=== PATIENT | male | born 1985 | race American Indian/Alaskan Native ===

== ENCOUNTER 2022-04-15 07:37 | Emergency (ER) | payer OTHER ==
--- NOTE | 2022-04-15 08:13 | XRay Report ---
RIGHT HAND 3 VIEWS INDICATION: laceration. COMPARISON: None. IMPRESSION: No soft tissue laceration is clearly seen on x-ray. No evidence for soft tissue gas or r adiopaque foreign body. No osseous abnormality or joint pathology is detected. Signer Name: Tino Mckeon Jr, MD Signed: 04/15/2022 8:09 AM Workstation Name: [id number]
[2022-04-15] MEDS ORDERED: TETANUS,DIPH,PERTUSS(ACELL) VACCINE 0.5 ML SYRINGE IM ONE (08:14)
--- NOTE | 2022-04-15 09:37 | Emergency Department Report ---
- General Chief Complaint: Wound/Laceration Stated Complaint: CUT FINGER Time Seen by Provider: 04/15/22 09:29 Source: patient Mode of arrival: Ambulatory Limitations: No Limitations - History of Present Illness Initial Comments: 36-year-old black male with a past medical history of hypertension presents to the emergency department for evaluation of right and hand injury. He states that while at work this morning, his hand was slammed down under machine. He presents with right thumb laceration as well as pain and swelling to the right thumb and hand. -: Sudden, This morning Extremity Location: Right: Hand Place: work Patient Tetanus UTD: No Context: accidental Associated Symptoms: pain. denies: loss of feeling/numbness, suspect foreign body present, unable to move injured part, weakness followed by dizziness, nausea/vomiting, fever - Related Data Previous Rx's Medication Instructions Recorded Last Taken Type Mupirocin [Bactroban 2%] 1 applic TP BID #1 tube 04/15/22 Unknown Rx cephALEXin [Keflex] 500 mg PO BID #14 cap 04/15/22 Unknown Rx Allergies Allergy/AdvReac Type Severity Reaction Status Date / Time No Known Allergies Allergy Unverified 04/15/22 07:45 ED Review of Systems ROS: Stated complaint: CUT FINGER Other details as noted in HPI Comment: All other systems reviewed and negative Constitutional: denies: fever Respiratory: denies: shortness of breath, SOB with exertion, SOB at rest, stridor, wheezing Cardiovascular: denies: chest pain Gastrointestinal: denies: abdominal pain, nausea, vomiting Musculoskeletal: denies: back pain Neurological: denies: headache Hematological/Lymphatic: denies: easy bleeding ED Past Medical Hx - Medications Home Medications: Home Medications Medication Instructions Recorded Confirmed Last Taken Type Mupirocin [Bactroban 2%] 1 applic TP BID #1 tube 04/15/22 Unknown Rx cephALEXin [Keflex] 500 mg PO BID #14 cap 04/15/22 Unknown Rx ED Physical Exam - General Limitations: No Limitations General appearance: alert, in no apparent distress - Head Head exam: Present: atraumatic, normocephalic - Eye Eye exam: Present: normal appearance. Absent: conjunctival injection - Neck Neck exam: Present: normal inspection. Absent: tenderness - Respiratory Respiratory exam: Absent: respiratory distress - Cardiovascular Cardiovascular Exam: Present: regular rate - GI/Abdominal GI/Abdominal exam: Absent: distended - Expanded Upper Extremity Exam Right Hand Wrist exam: Present: tenderness, swelling, laceration Hand L/R Front: 1 - Positive: abrasion. Negative: normal inspection, laceration Hand L/R Back: 1 - Laceration Neuro motor exam: Present: thumb opposition intact, thumb IP flexion intact, thumb adduction intact, fingers 2-5 abduction intact Neurosensory exam: Present: radial nerve intact Vascular: Present: normal capillary refill, radial pulse. Absent: vascular compromise, Pallo, pulse deficit radial art - Back Exam Back exam: Present: normal inspection - Neurological Exam Neurological exam: Present: alert, oriented X3 - Psychiatric Psychiatric exam: Present: normal affect, normal mood - Skin Skin exam: Present: warm, dry, normal color ED Course Vital Signs 04/15/22 04/15/22 07:44 09:54 Temperature 98.4 F Pulse Rate 94 H 90 Respiratory 16 16 Rate Blood Pressure 189/123 180/120 [Right] O2 Sat by Pulse 96 97 Oximetry - Laceration /Wound Repair Right Finger Wound Location: upper extremity (Right posterior thumb) Wound's Depth, Shape: superficial Wound Explored: clean Irrigated w/ Saline (ccs): 60 Betadine Prep?: No Anesthesia: 1% Lidocaine Volume Anesthetic (ccs): 4 Wound Repaired With: sutures Suture Size/Type: 4:0 (Vicryl) Number of Sutures: 5 Layer Closure?: No Sterile Dressing Applied?: Yes Progress: Patient tolerated well ED Medical Decision Making - Radiology Data Radiology results: report reviewed, image reviewed Right hand x-ray: IMPRESSION: No soft tissue laceration is clearly seen on x-ray. No evidence for soft tissue gas or radiopaque foreign body. No osseous abnormality or joint pathology is detected. - Medical Decision Making 36-year-old black male with a past medical history of hypertension presents to the emergency department for evaluation of right and hand injury. He states that while at work this morning, his hand was slammed down under machine. He presents with right thumb laceration as well as pain and swelling to the right thumb and hand. Right hand x-ray without any acute abnormalities noted. Right thumb laceration repaired per my procedure note. Tdap updated. Right hand abrasion cleaned. Patient advised to leave the sutures in until they resolve over the next 2 to 3 weeks. He is advised to take medication as prescribed and follow-up with a hand surgeon if worsening symptoms. He verbalizes understanding of and agreement with plan of care. Critical care attestation.: If time is entered above; I have spent that time in minutes in the direct care of this critically ill patient, excluding procedure time. ED Disposition Clinical Impression: Laceration of right thumb Qualifiers: Encounter type: initial encounter Damage to nail status: without damage Foreign body presence: without foreign body Qualified Code(s): S61.011A - Laceration without foreign body of right thumb without damage to nail, initial encounter Abrasion of right hand Qualifiers: Encounter type: initial encounter Qualified Code(s): S60.511A - Abrasion of right hand, initial encounter Disposition: 01 HOME / SELF CARE / HOMELESS Is pt being admited?: No Does the pt Need Aspirin: No Condition: Stable Instructions: Laceration Care, Adult, [id number], Abrasion, [id number], Sutured Wound Care, [id number] Additional Instructions: Take medications as prescribed. Leave stitches in until they dissolve. If you develop swelling to area, drainage, yellow streaks, or fever, return to the emergency department immediately for evaluation for infection. Follow-up with hand surgeon if worsening symptoms. Return to the emergency department as needed. Prescriptions: Mupirocin [Bactroban 2%] 1 applic TP BID #1 tube cephALEXin [Keflex] 500 mg PO BID #14 cap Referrals: Sugar Miranda [Other] - 3-5 Days Forms: Work/School Release Form(ED) Time of Disposition: 09:42
[2022-04-15 09:55] VITALS: BP 180/120
== END 2022-04-15 10:20 | disposition home or self-care (01) ==
LOC: ED 07:37
DX: S61.011A Laceration without foreign body of right thumb without damage to nail, initial encounter (principal); S60.511A Abrasion of right hand, initial encounter; X58.XXXA Exposure to other specified factors, initial encounter; Y93.89 Activity, other specified; Y92.89 Other specified places as the place of occurrence of the external cause; Y99.8 Other external cause status
CPT/HCPCS: 90471; 90715; 99283